=== PATIENT | female | born 1985 | race Caucasian/White ===

== ENCOUNTER 2018-05-04 07:08 | Day surgery (SDC) | payer OTHER, MEDICAID ==
[2018-05-04] MEDS ORDERED: MIDAZOLAM 1 MG/ML 2 ML INJ (09:32)
[2018-05-04] MEDS: BUPIVACAINE 0.25% (MPF) 30 ML INJ (10:00)
[2018-05-04] MEDS ORDERED: LIDOCAINE 2% (SDV) 5 ML INJ (10:16)
[2018-05-04] MEDS ORDERED: CEFAZOLIN 1 GM INJ (10:16)
[2018-05-04] MEDS ORDERED: PROPOFOL 20 ML (10:16)
[2018-05-04] MEDS ORDERED: GLYCOPYRROLATE 0.4 MG INJ (10:16)
[2018-05-04] MEDS ORDERED: NEOSTIGMINE 3 MG/3 ML SYRINGE (10:16)
[2018-05-04] MEDS ORDERED: ROCURONIUM 50 MG INJ (10:16)
[2018-05-04] MEDS ORDERED: ONDANSETRON 4 MG INJ ×2 (10:17→10:31)
[2018-05-04] MEDS ORDERED: HYDROCODONE/APAP (5/325) TAB PO (10:30)
[2018-05-04] MEDS ORDERED: LABETALOL HCL 20MG INJ IV (10:30)
[2018-05-04] MEDS ORDERED: hydrALAzine 20 MG INJ IV (10:30)
[2018-05-04] MEDS ORDERED: DIPHENHYDRAMINE 50 MG INJ IV (10:30)
[2018-05-04] MEDS ORDERED: MEPERIDINE 25 MG INJ IV (10:30)
[2018-05-04] MEDS: HYDROmorphONE 1 MG/5 ML IV SYRINGE IV ×2 (10:53→11:06)
[2018-05-04] MEDS: KETOROLAC 30 MG INJ IV (10:53)
[2018-05-04] MEDS: FENTAnyl 50 MCG/ML VIAL IV ×2 (10:54→11:05)
[2018-05-04] MEDS: ONDANSETRON 4 MG INJ IV (10:54)
[2018-05-04] MEDS: METOCLOPRAMIDE 10 MG INJ IV (10:55)
== END 2018-05-04 12:04 | disposition home or self-care (01) ==
LOC: SDS 07:08
DX: K80.20 Calculus of gallbladder without cholecystitis without obstruction (principal)
CPT/HCPCS: 47562; 88304

== ENCOUNTER 2018-07-31 09:22 | Emergency (ER) | payer OTHER | END 2018-07-31 10:26 | disposition home or self-care (01) | LOC: FTE 09:22 | DX: J06.9 Acute upper respiratory infection, unspecified (principal) | CPT/HCPCS: 99283; Z7502 ==

== ENCOUNTER 2018-08-09 06:42 | Day surgery (SDC) | payer OTHER ==
[2018-08-09] MEDS ORDERED: CEFAZOLIN 1 GM INJ (07:00)
[2018-08-09] MEDS ORDERED: SUCCINYLCHOLINE CHLORIDE 100 MG/5 ML SYG IV (07:00)
[2018-08-09] MEDS ORDERED: DESFLURANE 15 MIN (07:00)
[2018-08-09 08:10] LABS: ADD MAN DIFF? NO
[2018-08-09 08:16] LABS: BASOPHILS % 0.4 % (0.0-2.0); EOSINOPHILS # 0.1 10^3/ul (0.0-0.5); EOSINOPHILS % 1.7 % (0.0-7.0); HEMATOCRIT 37.6 % (37.0-47.0); HEMOGLOBIN 12.5 g/dl (12.0-16.0); LYMPHOCYTES # 2.7 10^3/ul (0.8-2.9); LYMPHOCYTES % 34.6 % (15.0-51.0); MEAN CORPUSCULAR HEMOGLOBIN 28.6 pg (29.0-33.0); MEAN CORPUSCULAR HGB CONC 33.2 g/dl (32.0-37.0); MEAN PLATELET VOLUME 9.4 fl (7.4-10.4); MONOCYTE # 0.4 10^3/ul (0.3-0.9); MONOCYTES % 5.6 % (0.0-11.0); NEUTROPHIL # 4.4 10^3/ul (1.6-7.5); NEUTROPHILS % 57.4 % (39.0-77.0); PLATELET COUNT 199 10^3/UL (140-415); RED BLOOD COUNT 4.37 10^6/ul (4.20-5.40); RED CELL DISTRIBUTION WIDTH 12.6 % (11.5-14.5)
[2018-08-09 08:16] LABS: WHITE BLOOD COUNT 7.7 10^3/ul (4.8-10.8)
[2018-08-09 08:37] LABS: ALANINE AMINOTRANSFERASE 20 IU/L (13-69); ALBUMIN/GLOBULIN RATIO 1.25; ALKALINE PHOSPHATASE 84 IU/L (42-121); ANION GAP 7 (5-13); ASPARTATE AMINO TRANSFERASE 15 IU/L (15-46); BILIRUBIN,INDIRECT 0.6 mg/dl (0-1.1); BILIRUBIN,TOTAL 0.6 mg/dl (0.2-1.3); BLOOD UREA NITROGEN 11 mg/dl (7-20); CALCIUM 9.8 mg/dl (8.4-10.2); CARBON DIOXIDE 26 mmol/L (21-31); CHLORIDE 107 mmol/L (97-110); CREATININE 0.67 mg/dl (0.44-1.00); Estimated GFR > 60 mL/min (>60); GLUCOSE 91 mg/dl (70-220); POTASSIUM 4.5 mmol/L (3.5-5.1); SODIUM 140 mmol/L (135-144); TOTAL PROTEIN 7.2 g/dl (6.1-8.1)
[2018-08-09 08:40] LABS: PROTIME 13.3 Sec (11.9-14.9)
[2018-08-09 08:41] LABS: PARTIAL THROMBOPLASTIN TIME 30.3 Sec (23.0-35.0)
[2018-08-09] MEDS ORDERED: ROCURONIUM 50 MG INJ (09:12)
[2018-08-09] MEDS ORDERED: LIDOCAINE 100 MG SYRINGE (09:12)
[2018-08-09] MEDS ORDERED: FENTAnyl 50 MCG/ML VIAL ×2 (09:12→09:45)
[2018-08-09] MEDS ORDERED: MIDAZOLAM 1 MG/ML 2 ML INJ (09:12)
[2018-08-09] MEDS ORDERED: PROPOFOL 100 ML (09:12)
[2018-08-09] MEDS ORDERED: DEXAMETHASONE 4 MG/ML 5 ML INJ (09:13)
[2018-08-09] MEDS ORDERED: ONDANSETRON 4 MG INJ (09:13)
[2018-08-09] MEDS ORDERED: SUGAMMADEX SODIUM 200 MG/2 ML VIAL IV (09:13)
[2018-08-09] MEDS: LIDOCAINE 2% (MDV) 20 ML INJ (09:43)
[2018-08-09] MEDS: BUPIVACAINE 0.5% (SDV) 30 ML INJ (09:43)
[2018-08-09] MEDS ORDERED: HYDROmorphONE 1 MG/5 ML IV SYRINGE IV (10:00)
[2018-08-09] MEDS ORDERED: LABETALOL HCL 20MG INJ IV (10:00)
[2018-08-09] MEDS ORDERED: METOCLOPRAMIDE 10 MG INJ IV (10:00)
[2018-08-09] MEDS ORDERED: FENTAnyl 50 MCG/ML VIAL IV ×2 (10:00)
[2018-08-09] MEDS ORDERED: ONDANSETRON 4 MG INJ IV (10:00)
[2018-08-09] MEDS ORDERED: hydrALAzine 20 MG INJ IV (10:00)
[2018-08-09] MEDS ORDERED: MEPERIDINE 25 MG INJ IV (10:00)
[2018-08-09] MEDS: TRIAMCINOLONE ACET 40 MG/ML INJ (10:07)
[2018-08-09] MEDS: HYDROmorphONE 1 MG/5 ML IV SYRINGE IV (10:54)
[2018-08-09] MEDS: HYDROCODONE/APAP (5/325) TAB PO (10:55)
== END 2018-08-09 11:56 | disposition home or self-care (01) ==
LOC: SDS 06:42
DX: L90.5 Scar conditions and fibrosis of skin (principal)
CPT/HCPCS: 14001; 80053; 85025; 85610; 85730; 88307